=== PATIENT | male | born 1930 | race African-American/Black ===

== ENCOUNTER → 2019-02-06 | Outpatient (CLI) | payer OTHER ==
--- NOTE | 2019-02-06 11:55 | 2DMMODE ---
[facility] [address] [email or web address] [address] 2 D/M-MODE ECHOCARDIOGRAM Name: BRANDONSANAZ CHRISTIN Room #: [facility] [id number] Admission: 02/06/19 Attend Phys: Steve John Discharge: Date of : 34 Report #: [id number] THIS REPORT FOR: //name// APPROVED REPORT Study performed: 02/06/2019 09:21:01 EXAM: Comprehensive 2D, Doppler, and color-flow Echocardiogram Patient Location: Out-Patient Status: routine BSA: 2.10 HR: 62 bpm BP: 140/70 mmHg Rhythm: NSR Other Information Study Quality: Adequate Indications Chest Pain Hypertension/HDD 2D Dimensions RVDd: 37.17 mm IVSd: 9.63 (7-11mm) LVOT Diam: 20.08 (18-24mm) LVDd: 50.95 mm PWd: 10.63 (7-11mm) Ascending Ao: 35.63 (22-36mm) LVDs: 37.06 (25-40mm) Aortic Root: 33.93 mm Volumes Left Atrial Volume (Systole) Single Plane 4CH: 42.15 mL Single Plane 2CH: 61.81 mL LA ESV Index: 26.00 mL/m2 Aortic Valve AoV Peak Thierry.: 1.47 m/s AO Peak Gr.: 8.63 mmHg LVOT Max P.47 mmHg LVOT Max V: 0.93 m/s SARAI Vmax: 2.01 cm2 AI Vmax: 4.78 m/s AI [place]: 3.21 m/s2 AI PHT: 432.67 ms [facility] [address] [place] [address] 2 D/M-MODE ECHOCARDIOGRAM Name: SANAZ TAYLOR Room #: REG [facility]#: [id number] Admission: 02/06/19 Attend Phys: Steve John Discharge: Date of : 34 Report #: [id number] Mitral Valve E/A Ratio: 0.7 MV Decel. Time: 254.11 ms MV E Max Thierry.: 0.71 m/s MV A Thierry.: 1.01 m/s MV PHT: 73.69 ms IVRT: 115.34 ms Pulmonary Valve PV Peak Thierry.: 0.80 m/s PV Peak Gr.: 2.58 mmHg Tricuspid Valve TR Peak Thierry.: 3.02 m/s RAP Estimate: 5.00 mmHg TR Peak Gr.: 36.36 mmHg PA Pressure: 41.00 mmHg Left Ventricle The left ventricle is normal size. Borderline concentric left ventricular hypertrophy. The left ventricular systolic function is normal. The left ventricular ejection fraction is within the normal range. LVEF is 55-60%. Mild diastolic dysfunction is present (impaired relaxation pattern). Right Ventricle The right ventricle is normal size. The right ventricular systolic function is normal. Atria The left atrium size is normal. The right atrium size is normal. Aortic Valve Aortic valve leaflets are mildly thickened. Mild aortic regurgitation. There is no aortic valvular stenosis. Mitral Valve Mitral valve leaflets are thickened. Mild to moderate mitral regurgitation. No evidence of mitral valve stenosis. Tricuspid Valve The tricuspid valve is normal in structure. Mild tricuspid regurgitation. Estimated PAP is 41mmHg. Pulmonic Valve The pulmonary valve is normal in structure. Mild pulmonic regurgitation. [facility] [place] [address] 2 D/M-MODE ECHOCARDIOGRAM Name: SANAZ TAYLOR CHRISTIN Room #: REG [place]#: [id number] Admission: 02/06/19 Attend Phys: Steve John Discharge: Date of : 34 Report #: [id number] Great Vessels The aortic root is normal in size. The ascending aorta is normal in size. IVC is normal in size and collapses >50% with inspiration. Pericardium There is no pericardial effusion. <Conclusion> The left ventricle is normal size. LVEF is 55-60%. Aortic valve leaflets are mildly thickened. Mild aortic regurgitation. Mitral valve leaflets are thickened. Mild to moderate mitral regurgitation. The tricuspid valve is normal in structure. Mild tricuspid regurgitation. Estimated PAP is 41mmHg. The pulmonary valve is normal in structure. Mild pulmonic regurgitation. There is no pericardial effusion. <ELECTRONICALLY SIGNED> By: Steve Chong MD 02/06/19 1155 [id number] Steve Chong MD /INF
== END ==
LOC: NUC 08:30 → CARD 08:30
DX: I08.8 Other rheumatic multiple valve diseases (principal); I10 Essential (primary) hypertension; E11.9 Type 2 diabetes mellitus without complications; Z87.891 Personal history of nicotine dependence; Z88.8 Allergy status to other drugs, medicaments and biological substances

== ENCOUNTER → 2019-08-13 | Outpatient (CLI) | payer OTHER | LOC: SJCVC 14:35 | DX: I25.119 Atherosclerotic heart disease of native coronary artery with unspecified angina pectoris (principal); I10 Essential (primary) hypertension; E11.9 Type 2 diabetes mellitus without complications; E78.5 Hyperlipidemia, unspecified; M10.9 Gout, unspecified; M17.12 Unilateral primary osteoarthritis, left knee; Z79.82 Long term (current) use of aspirin; Z79.84 Long term (current) use of oral hypoglycemic drugs; Z79.899 Other long term (current) drug therapy; Z87.891 Personal history of nicotine dependence ==